=== PATIENT | male | born 1970 | race Caucasian/White ===

== ENCOUNTER 2019-02-19 10:30 | Emergency (ER) | payer OTHER ==
[~2019-02-19] VITALS: Ht 185.4 cm; Wt 102.3 kg
[2019-02-19 10:30] VITALS: BP 150/90
[2019-02-19] MEDS ORDERED: HYDR25TA PO (10:55)
--- NOTE | 2019-02-19 10:55 | PHYS DOC ---
Past History Past Medical History: No Pertinent History Past Surgical History: No Surgical History Smoking: Non-smoker Alcohol Use: None Drug Use: None Adult General Chief Complaint Chief Complaint: SKIN RASH/ABSCESS HPI HPI Patient is a 48-year-old male presents complaining of skin rash. This started approximately 2 weeks ago after exposure to plants, Kamla guillen. He was seen on post in given a Medrol dose pack which did improve the rash. He is finished the Medrol Dosepak approximately 6 days ago and over the past couple of days the rash has returned and is worse than it was prior to the administration of the Medrol Dosepak. He is also out of the topical triamcinolone cream that he was prescribed. Reports the rash is itchy. There has been no drainage. No fever. No real exposure to plants. He breathing. No nausea or vomiting.[] Review of Systems Review of Systems Constitutional: Denies fever or chills [] Eyes: Denies change in visual acuity, redness, or eye pain [] HENT: Denies nasal congestion or sore throat [] Respiratory: Denies cough or shortness of breath [] Cardiovascular: No chest pain or palpitations[] GI: Denies abdominal pain, nausea, vomiting, bloody stools or diarrhea [] : Denies dysuria or hematuria [] Musculoskeletal: Denies back pain or joint pain [] Integument: See history of present illness[] Neurologic: Denies headache, focal weakness or sensory changes [] Endocrine: Denies polyuria or polydipsia [] All other systems were reviewed and found to be within normal limits, except as documented in this note. Allergies Allergies Allergies Coded Allergies Type Severity Reaction Last Updated Verified No Known Drug Allergies 02/19/19 No Physical Exam Physical Exam Constitutional: Well developed, well nourished, no acute distress, non-toxic appearance. [] HENT: Normocephalic, atraumatic, bilateral external ears normal, oropharynx moist, no oral exudates, nose normal. [] Eyes: PERRLA, EOMI, conjunctiva normal, no discharge. [] Neck: Normal range of motion, no tenderness, supple, no stridor. [] Cardiovascular:Heart rate regular rhythm, no murmur [] Lungs & Thorax: Bilateral breath sounds clear to auscultation [] Abdomen: Bowel sounds normal, soft, no tenderness, no masses, no pulsatile masses. [] Skin: Warm, dry, erythematous rash bilateral forearms as well as bilateral legs and knees, in a linear pattern. There is no drainage, no petechiae. No skin sloughing.. [] Back: No tenderness, no CVA tenderness. [] Extremities: No tenderness, no cyanosis, no clubbing, ROM intact, no edema. [] Neurologic: Alert and oriented X 3, normal motor function, normal sensory function, no focal deficits noted. [] Psychologic: Affect normal, judgement normal, mood normal. [] EKG EKG [] Radiology/Procedures Radiology/Procedures [] Course & Med Decision Making Course & Med Decision Making Pertinent Labs and Imaging studies reviewed. (See chart for details) Medical decision making: Patient appears to have a Rhus dermatitis. Believe that his prior treatment was completed before the symptomatology was fully resolved. We will treat him with a longer acting steroids as well as oral antihistamines as needed for breakthrough irritation. Her is no evidence of anaphylaxis, no staph scalded skin syndrome, no toxic epidermal necrolysis, no Marina-Mingo syndrome[] Dragon Disclaimer Dragon Disclaimer This electronic medical record was generated, in whole or in part, using a voice recognition dictation system. Departure Departure: Impression: Primary Impression: Rhus dermatitis Disposition: 01 HOME, SELF-CARE Condition: IMPROVED Referrals: CASIE ZARATE PA-C (PCP) Follow-up in 2 days Patient Instructions: Poison Shadia Additional Instructions: Follow-up with your regular doctor in 2 days. Return to the ER if worsening rash, purulent drainage, difficulty breathing, or any other concerns. Scripts Hydroxyzine Hcl (HYDROXYZINE HCL) 25 Mg Tablet 1 TAB PO TID for allergic reaction, #30 TAB Prov: ROSS GARCIA DO 02/19/19 ROSS GARCIA DO Feb 19, 2019 10:55
[2019-02-19] MEDS ORDERED: DEXAMETHASONE SOD PHOS 10 MG/ML VIAL IM ONE (11:00)
[2019-02-19] MEDS ORDERED: TRIAMCINOLONE ACETONIDE 40 MG/ML VIAL. IM ONE (11:00)
== END 2019-02-19 11:02 | disposition home or self-care (01) ==
LOC: ER 10:30
DX: L23.7 Allergic contact dermatitis due to plants, except food (principal)
CPT/HCPCS: 96372; 99284; J1100; J3301